=== PATIENT | male | born 1950 | race Caucasian/White ===

== ENCOUNTER 2018-07-06 06:56 | Day surgery (SDC) | payer BC, OTHER ==
[2018-07-06 07:08] VITALS: BMI 24.3
--- NOTE | 2018-07-06 07:52 | PDOC ---
History of Present Illness - General Chief Complaint: Pain Stated Complaint: LEFT FLANK PAIN Time Seen by Provider: 07/06/18 07:06 History Source: Patient Exam Limitations: No Limitations - History of Present Illness Initial Comments: 07/06/18 07:46 67-year-old male with latent hep C, otherwise no significant past medical history (states he used to be on Lipitor but no longer, last PCP visit was about 2 years ago) in good state of normal health presents now with 2 episodes of left flank pain overnight. Patient was in his usual state of health, went to bed feeling fine, was awoken from sleep around 2 AM with a sharp 8 out of 10 localized left flank pain without any other associated symptoms nausea/vomiting/ dysuria/urgency/hematuria. The patient took half a pill of Aleve and the pain went away within 10 minutes. The pain recurred around 6 AM, this time radiating slightly to the left lower abdomen, took the other half of Aleve and again the pain resolved after 10 minutes. Presents for evaluation, currently asymptomatic. No history of kidney stones, never had similar pain in the past. Distant history 40 years ago of rectal surgery for bleeding, has not noted any swelling/ masses. Does daily lifting at his [employer], no unusual strain yesterday. Did slip down a couple of steps last week, sustained a bruise to his R thigh, but no other injuries. No cp/palp. No h/o high blood pressure. Past History - Past Medical History Allergies/Adverse Reactions: Allergies Allergy/AdvReac Type Severity Reaction Status Date / Time No Known Allergies Allergy Verified 07/06/18 06:57 Home Medications: Ambulatory Orders NK [No Known Home Medication] 07/06/18 COPD: No HTN: No Hypercholesterolemia: Yes - Surgical History Abdominal Surgery: Yes (Umbilical hernia) - Immunization History Td Vaccination: No - Suicide/Smoking/Psychosocial Hx Smoking Status: No Smoking History: Never smoked Have you smoked in the past 12 months: No Number of Cigarettes Smoked Daily: 0 Information on smoking cessation initiated: No Hx Alcohol Use: No Drug/Substance Use Hx: Yes (Marijuana) Review of Systems - Review of Systems Constitutional: No: Chills, Fever, Night Sweats, Unintentional Wgt. Loss Respiratory: No: Cough, Shortness of Breath, Wheezing Cardiac (ROS): No: Chest Pain, Edema, Lightheadedness, Syncope ABD/GI: No: Constipated, Diarrhea, Nausea, Vomiting : Yes: Flank Pain. No: Burning, Dysuria, Hematuria Musculoskeletal: Yes: Muscle Pain Integumentary: No: Rash Neurological: No: Headache All Other Systems: Reviewed and Negative *Physical Exam - Vital Signs Last Vital Signs Temp Pulse Resp BP Pulse Ox 98.2 F 67 18 182/111 H 100 07/06/18 07:01 07/06/18 07:01 07/06/18 07:01 07/06/18 07:01 07/06/18 07:01 - Physical Exam Comments: 07/06/18 07:50 Blood pressure notably elevated, vital signs otherwise normal GENERAL: The patient is awake, alert, and fully oriented, in no acute distress seated in chair without any pain. HEAD: Normal with no signs of trauma. EYES: PERRL, EOMI, sclera anicteric, conjunctiva clear with no pallor. ENT: oropharynx clear. Moist mucous membranes. NECK: Normal range of motion, supple without lymphadenopathy, JVD, or masses. LUNGS: Breath sounds equal, clear to auscultation bilaterally. No wheeze/ crackles. HEART: Regular rate and rhythm, normal S1 and S2 without murmur or rub. ABDOMEN: Soft/nontender/nondistended. BS wnl. No CVAT. No guarding or rebound. No palpable masses or lymph nodes. No hepatosplenomegaly. EXTREMITIES: Normal range of motion, no edema. 2+ distal pulses. No cords, erythema, or tenderness. NEUROLOGICAL: Cranial nerves II through XII grossly intact. Normal speech, normal gait. PSYCH: Normal mood, normal affect. SKIN: Warm, Dry, no rashes or lesions noted. Heart Score/ECG Review #1 ECG reviewed & interpreted by me at: 07:58 General ECG Interpretation: Sinus Rhythm, Normal Rate (63), Normal Intervals ( qtc 423, no LVH), No acute ischemic changes ED Treatment Course - LABORATORY CBC & Chemistry Diagram: 07/06/18 07:15 07/06/18 07:24 Medical Decision Making - Medical Decision Making 07/06/18 07:52 67-year-old male presents with 2 brief episodes of isolated left flank pain, resolved. Other than elevated blood pressure, no notable findings on examination. Presentation could be consistent with kidney stone, given the high blood pressure will rule out any kidney injury. No current evidence for zoster, GI process, or primary cardiopulmonary process. Check labs, urinalysis Repeat blood pressure 158/90 without intervention Can consider imaging based on lab findings 07/06/18 08:47 UA with 1+ blood, no infection. CTAP ordered for possible renal colic. labs wnl, no leukocytosis and Cr normal Pain returned while waiting for CT, + L cva discomfort to palpation, seems colicky as pt uncomfortable/writhing. Given Toradol IV. 07/06/18 10:50 obstructing proximal 9mm y-shaped L ureteral stone with edema/stranding. Discussed with Dr. Soto, no UTI/JEREMY but given persistent sxs will admit for pain control and likely intervention. Pt agrees. 07/06/18 12:18 accepted for admission by Dr. Colunga (signout given to LALITO Major) pending confirmation of consult availability. Will d/w and proceed accordingly. Dr. Soto unable to see at [facility]. 07/06/18 13:[address] Brown, will see patient and plan for likely stent tomorrow. LALITO Major updated and accepts for admission to med/surg. Pt clinically unchanged. *DC/Admit/Observation/Transfer Diagnosis at time of Disposition: Left flank pain, Left nephrolithiasis - Discharge Dispostion Condition at time of disposition: Stable Decision to Admit order: Yes - Referrals - Patient Instructions - Post Discharge Activity
[2018-07-06 08:20] LABS: ALBUMIN 4.1 g/dl (3.4-5.0); ALK PHOS 35 U/L (45-117); ANION GAP 7 MMOL/L (8-16); BILIRUBIN,TOTAL 0.7 mg/dl (0.2-1); BLOOD UREA NITROGEN 21 mg/dl (7-18); CALCIUM 8.7 mg/dl (8.5-10); CHLORIDE 104 mmol/L (98-107); CO2 26 mmol/L (21-32); CREATININE 0.8 mg/dl (0.55-1.3); GLUCOSE,RANDOM 96 mg/dl (74-106); POTASSIUM 4.2 mmol/L (3.5-5.1); SGOT/AST 23 U/L (15-37); SGPT/ALT 13 U/L (13-61); SODIUM 137 mmol/L (136-145)
[2018-07-06 08:31] LABS: BASO % 0.2 % (0-2.0); EOS % 0.3 % (0-4.5); HEMATOCRIT 37.5 % (35.4-49); HEMOGLOBIN 12.8 GM/dl (11.7-16.9); LYMPH % 14.1 % (8-40); MCH 31.5 pg (25.7-33.7); MCHC 34.2 g/dl (32.0-35.9); MEAN CELL VOLUME 92.1 fl (80-96); MEAN PLT VOLUME 8.6 fl (7.5-11.1); MONO % 6.4 % (3.8-10.2); PLATELET COUNT 288 K/MM3 (134-434); RBC 4.07 M/mm3 (4.00-5.60); RDW 12.6 % (11.9-15.9); WHITE BLOOD COUNT 8.4 K/mm3 (4.0-10.8)
[2018-07-06] MEDS ORDERED: KETOROLAC TROMETHAMINE 30 MG/1 ML VIAL ONE (08:45)
[2018-07-06] MEDS ORDERED: KETOROLAC TROMETHAMINE 30 MG/1 ML VIAL IVPUSH ONE (08:46)
[2018-07-06 11:26] LABS: EPITHELIAL CELLS FEW /hpf
--- NOTE | 2018-07-06 16:38 | EKG ---
Test Reason : Blood Pressure : / mmHG Vent. Rate : 063 BPM Atrial Rate : 063 BPM P-R Int : 174 ms QRS Dur : 086 ms QT Int : 414 ms P-R-T Axes : 075 -26 052 degrees QTc Int : 423 ms NORMAL SINUS RHYTHM NORMAL ECG NO PREVIOUS ECGS AVAILABLE Confirmed by GRANT MINAYA, JESÚS ([id number]) on 07/06/2018 4:38:16 PM Referred By: RYAN PALOMO Confirmed By:JESÚS BURNS MD
[2018-07-06] MEDS ORDERED: ACETAMINOPHEN 1000 MG/100 ML VIAL (NON FORMULARY) IVPB PRN (17:19)
[2018-07-06] MEDS: KETOROLAC TROMETHAMINE 30 MG/1 ML VIAL IVPUSH PRN ×2 (17:24→18:41)
[2018-07-06] MEDS: SODIUM CHLORIDE 1,000 ML IV SCH (18:00)
--- NOTE | 2018-07-06 18:42 | HP ---
CHIEF COMPLAINT: Left flank pain PCP: Es Solares HISTORY OF PRESENT ILLNESS: 67 year-old male with a PMH significant for Hep C treated with Interferon x 10 years. Patient was in his usual state of health, went to bed last night feeling fine, was awoken from sleep around 2 AM with a sharp, 8/10 localized left flank pain without any other associated symptoms nausea/vomiting/dysuria/urgency/ hematuria. The patient took half a pill of Aleve and the pain went away within 10 minutes. The pain recurred around 6 AM, this time radiating slightly to the left lower abdomen, took the other half of Aleve and again the pain resolved after 10 minutes. Presented to the ED for evaluation. No history of kidney stones, never had similar pain in the past. Distant history 40 years ago of surgery which he thinks was related to ulcers and rectal bleeding. Does daily lifting at his [employer], no unusual strain. Did slip down a couple of steps last week, sustained a bruise to his R thigh, but no other injuries. ER course was notable for: (1) BP: 182/111 (2) CTAP: left kidney edematous and swollen with perirenal stranding; 9mm Y- shaped renal pelvic calculus; left hydronephrosis Recent Travel: No PAST MEDICAL HISTORY: Hepatitis C treated with Interferon PAST SURGICAL HISTORY: Surgery related to ulcers and rectal bleeding age 32 Appendectomy child Social History: works in [employer] in [place], lives with Smoking: quit 20 years ago, smoked 15 years Alcohol: occasinal wine/beer Drugs: no Family History: mother 63 intestinal blockage, father 64 complications from surgery, siblings, children a & w Allergies No Known Allergies Allergy (Verified 07/06/18 06:57) HOME MEDICATIONS: Home Medications Medication Instructions Recorded NK [No Known Home Medication] 07/06/18 REVIEW OF SYSTEMS CONSTITUTIONAL: Absent: fever, chills, diaphoresis, generalized weakness, malaise, loss of appetite, weight change HEENT: Absent: rhinorrhea, nasal congestion, throat pain, throat swelling, difficulty swallowing, mouth swelling, ear pain, eye pain, visual changes CARDIOVASCULAR: Absent: chest pain, syncope, palpitations, irregular heart rate, lightheadedness , peripheral edema RESPIRATORY: Absent: cough, shortness of breath, dyspnea with exertion, orthopnea, wheezing, stridor, hemoptysis GASTROINTESTINAL: Absent: abdominal pain, abdominal distension, nausea, vomiting, diarrhea, constipation, melena, hematochezia GENITOURINARY: +left flank pain, intermittent Absent: dysuria, frequency, urgency, hesitancy, hematuria, flank pain, genital pain MUSCULOSKELETAL: Absent: myalgia, arthralgia, joint swelling, back pain, neck pain SKIN: Absent: rash, itching, pallor HEMATOLOGIC/IMMUNOLOGIC: Absent: easy bleeding, easy bruising, lymphadenopathy, frequent infections ENDOCRINE: Absent: unexplained weight gain, unexplained weight loss, heat intolerance, cold intolerance NEUROLOGIC: Absent: headache, focal weakness or paresthesias, dizziness, unsteady gait, seizure, mental status changes, bladder or bowel incontinence PSYCHIATRIC: Absent: anxiety, depression, suicidal or homicidal ideation, hallucinations. PHYSICAL EXAMINATION Vital Signs - 24 hr 07/06/18 07/06/18 07/06/18 07:01 07:53 11:05 Temperature 98.2 F Pulse Rate 67 Pulse Rate [ 60 57 L Right] Respiratory 18 17 Rate Blood Pressure 182/111 H Blood Pressure 158/91 141/84 [Left Arm] O2 Sat by Pulse 100 100 100 Oximetry (%) 07/06/18 07/06/18 13:40 14:25 Temperature 98 F 99 F Pulse Rate 56 L Pulse Rate [ 58 L Right] Respiratory 17 18 Rate Blood Pressure 147/79 Blood Pressure 148/90 [Left Arm] O2 Sat by Pulse 98 Oximetry (%) GENERAL: Awake, alert, and fully oriented, in no acute distress. HEAD: Normal with no signs of trauma. EYES: Pupils equal, round and reactive to light, extraocular movements intact, sclera anicteric, conjunctiva clear. No lid lag. EARS, NOSE, THROAT: Ears normal, nares patent, oropharynx clear without exudates. Moist mucous membranes. NECK: Normal range of motion, supple without lymphadenopathy, JVD, or masses. LUNGS: Breath sounds equal, clear to auscultation bilaterally. No wheezes, and no crackles. No accessory muscle use. HEART: Regular rate and rhythm, normal S1 and S2 without murmur, rub or gallop. ABDOMEN: Soft, nontender, not distended, normoactive bowel sounds, no guarding, no rebound, no masses. No hepatomegaly or splenomegaly. MUSCULOSKELETAL: Normal range of motion at all joints. No bony deformities or tenderness. +left CVA tenderness UPPER EXTREMITIES: 2+ pulses, warm, well-perfused. No cyanosis. No clubbing. No peripheral edema. LOWER EXTREMITIES: 2+ pulses, warm, well-perfused. No calf tenderness. No peripheral edema. NEUROLOGICAL: Cranial nerves II-XII intact. Normal speech. Normal gait. Laboratory Results - last 24 hr 07/06/18 07/06/18 07/06/18 07:15 07:24 07:32 WBC 8.4 RBC 4.07 Hgb 12.8 Hct 37.5 MCV 92.1 MCH 31.5 MCHC 34.2 RDW 12.6 Plt Count 288 MPV 8.6 Absolute Neuts (auto) 6.7 Neutrophils % 79.0 Lymphocytes % 14.1 Monocytes % 6.4 Eosinophils % 0.3 Basophils % 0.2 Sodium 137 Potassium 4.2 Chloride 104 Carbon Dioxide 26 Anion Gap 7 L BUN 21 H Creatinine 0.8 Creat Clearance w eGFR 97.02 Random Glucose 96 Calcium 8.7 Total Bilirubin 0.7 AST 23 ALT 13 Alkaline Phosphatase 35 L Total Protein 7.0 Albumin 4.1 Urine Color Yellow Urine Appearance Clear Urine pH 5.0 Urine Protein Negative Urine Glucose (UA) Negative Urine Ketones Negative Urine Blood 1+ H Urine Nitrite Negative Urine Bilirubin Negative Urine Urobilinogen 0.2 Ur Leukocyte Esterase Negative Urine RBC 0-3 Urine WBC 0-3 Ur Transition Epith Cell Few Urine Bacteria None seen ASSESSMENT/PLAN 67 year-old male with a PMH significant for Hep C. 23 hour surgery admit for obstructing left renal pelvic calculi. Obstructing left renal pelvic calculi --CTAP: left kidney edematous and swollen with perirenal stranding; 9mm Y- shaped renal pelvic calculus; left hydronephrosis --renal function stable; no fever no leukocytosis --scheduled for OR tomorrow with urologist Dr. Ureña --UA negative, no hematuria; UC ordered Elevated blood pressure --BP: 182/111 in ED, has since stabilized --not on anti-hypertensives Hepatitis C --treated, stable FEN Fluids: NS@125mL/hr Electrolytes: replete as indicated Nutrition: NPO after midnight DVT prophylaxis: oob, ambulation Dispo: continues to require inpatient care. Full code. Visit type - Emergency Visit Emergency Visit: Yes Care time: The patient presented to the Emergency Department on the above date and was hospitalized for further evaluation of their emergent condition. - New Patient This patient is new to me today: Yes Date on this admission: 07/06/18 - Critical Care Critical Care patient: No
[2018-07-06] MEDS: DOCUSATE SODIUM 100 MG CAPSULE (FP) PO SCH (21:34)
[2018-07-07] MEDS: KETOROLAC TROMETHAMINE 30 MG/1 ML VIAL IVPUSH PRN (11:58)
[2018-07-07] MEDS: HYDROmorphone HCL CARPU-JECT 2 MG/1 ML DISP.SYRIN IVPB PRN (13:20)
--- NOTE | 2018-07-07 13:34 | PN ---
Physical Exam: SUBJECTIVE: Patient seen and examined OBJECTIVE: Vital Signs Period Temp Pulse Resp BP Sys/Leblanc Pulse Ox Last 24 Hr 97.7 F-99 F 56-61 16-18 123-151/59-90 98-99 GENERAL: Awake, alert, and fully oriented, in no acute distress. LUNGS: Breath sounds equal, clear to auscultation bilaterally. No wheezes, and no crackles. No accessory muscle use. HEART: Regular rate and rhythm, normal S1 and S2 ABDOMEN: Soft, nontender, not distended MUSCULOSKELETAL: +left CVA tenderness UPPER EXTREMITIES: 2+ pulses, warm, well-perfused. No cyanosis. No clubbing. No peripheral edema. LOWER EXTREMITIES: 2+ pulses, warm, well-perfused. No calf tenderness. No peripheral edema. NEUROLOGICAL: Cranial nerves II-XII intact. Normal speech. Normal gait. Laboratory Results - last 24 hr 07/07/18 06:00 Urine Color Joslyn Urine Appearance Clear Urine pH 5.5 Urine Protein Negative Urine Glucose (UA) Negative Urine Ketones Negative Urine Blood Trace-lysed Urine Nitrite Negative Urine Bilirubin Negative Urine Urobilinogen 0.2 Ur Leukocyte Esterase Negative Urine RBC 0-2 Active Medications Generic Name Dose Route Start Last Admin Trade Name Freq PRN Reason Stop Dose Admin Docusate Sodium 300 mg 07/06/18 22:00 07/06/18 21:34 Colace - PO Not Given HS CORBIN Hydromorphone HCl 2 mg 07/06/18 20:25 07/07/18 13:20 Dilaudid Injection - IVPB 2 mg Q6H PRN Administration PAIN LEVEL 6-10 Sodium Chloride 1,000 mls @ 125 mls/hr 07/06/18 17:30 07/06/18 18:00 Normal Saline - IV 125 mls/hr ASDIR CORBIN Administration Ketorolac Tromethamine 30 mg 07/06/18 20:24 07/07/18 11:58 Toradol Injection - IVPUSH 07/11/18 17:17 30 mg Q6H PRN Administration PAIN LEVEL 1-5 ASSESSMENT/PLAN: 67 year-old male with a PMH significant for Hep C. 23 hour surgery admit for obstructing left renal pelvic calculi. Obstructing left renal pelvic calculi --CTAP: left kidney edematous and swollen with perirenal stranding; 9mm Y- shaped renal pelvic calculus; left hydronephrosis --renal function stable; no fever no leukocytosis --scheduled for OR today with urologist Dr. Ureña --no fever, no leukocytosis; UA negative, no hematuria; UC pending --ketorolac PRN; dilaudid PRN Elevated blood pressure, resolved --not on anti-hypertensives Hepatitis C --treated, stable FEN Fluids: NS@125mL/hr Electrolytes: replete as indicated Nutrition: NPO DVT prophylaxis: oob, ambulation Dispo: continues to require inpatient care. Full code. Visit type - Emergency Visit Emergency Visit: Yes Care time: The patient presented to the Emergency Department on the above date and was hospitalized for further evaluation of their emergent condition. - New Patient This patient is new to me today: No - Critical Care Critical Care patient: No
[2018-07-07] MEDS ORDERED: PROMETHAZINE HCL 25 MG/1 ML VIAL IVPUSH PRN (15:17)
[2018-07-07] MEDS ORDERED: ONDANSETRON 4 MG/2 ML VIAL IVPUSH PRN (15:17)
[2018-07-07] MEDS ORDERED: PROPOFOL 20 ML ONE (15:26)
[2018-07-07] MEDS ORDERED: DEXAMETHASONE SOD PHOSPHATE 4 MG/1 ML VIAL ONE (15:26)
[2018-07-07] MEDS ORDERED: KETOROLAC TROMETHAMINE 30 MG/1 ML VIAL ONE (15:26)
[2018-07-07] MEDS ORDERED: ONDANSETRON 4 MG/2 ML VIAL ONE (15:26)
[2018-07-07] MEDS ORDERED: MIDAZOLAM HCL 2 MG/2 ML SINGLE DOSE VIAL ONE (15:27)
[2018-07-07] MEDS ORDERED: LACTATED RINGERS SOLUTION 1,000 ML IV SCH (15:30)
[2018-07-07] MEDS ORDERED: LIDOCAINE HCL 2% JELLY 10 ML CARTRIDGE ONE (15:50)
[2018-07-07] MEDS ORDERED: IOHEXOL 180 MG/1 ML ML IJ ONE (16:20)
[2018-07-07] MEDS ORDERED: ceFAZolin SODIUM 1 GM VIAL ONE ×2 (16:23)
[2018-07-07] MEDS ORDERED: LIDOCAINE HCL 2% JELLY 10 ML CARTRIDGE TP ONE ×2 (16:30→16:32)
--- NOTE | 2018-07-07 17:02 | OP ---
DATE OF OPERATION: 07/07/2018 PREOPERATIVE DIAGNOSIS: Left ureteropelvic junction stone. POSTOPERATIVE DIAGNOSIS: Left ureteropelvic junction stone. PROCEDURE: Cystoscopy. Left retrograde pyelogram. Placement of left ureteral stent. ATTENDING SURGEON: Eliud Brown MD ANESTHESIA: General by LMA. Patient was brought into the operating room. Timeout performed. He was then carefully placed in lithotomy and prepped and draped in the usual sterile fashion. The 22-Bur[place]ian cystoscope was passed under vision. Prostatic urethra was approximately 3 cm with minimal prostatic enlargement. The bladder itself appeared normal with no masses. Both orifices were visualized. The left orifice was then intubated with Sensor wire over which an open-ended catheter was placed. The open-ended catheter was advanced and a retrograde performed showing a stone at the level of the UPJ which was fairly radiolucent. The wire was reinserted through the open-ended catheter and advanced under fluoroscopy up into the left renal pelvis. The open-ended was then removed and a 26 cm 6-Burundian double pigtail catheter advanced over the wire and curled in the left renal pelvis. Distally it curled in the bladder. There were no complications. The bladder was drained. The patient tolerated the procedure well and left the OR in stable satisfactory condition. MD TATYANA SEGAL/[id number]
[2018-07-07] MEDS ORDERED: SODIUM CHLORIDE 1,000 ML IV SCH ×2 (17:31→18:15)
[2018-07-07] MEDS: SODIUM CHLORIDE 1,000 ML IV SCH (17:57)
[2018-07-07] MEDS ORDERED: PT OWN MED DRAWER 7, Y5N ONE (19:39)
[2018-07-07] MEDS ORDERED: CEFUROXIME AXETIL 500 MG TABLET PO SCH (20:00)
[2018-07-07] MEDS: DOCUSATE SODIUM 100 MG CAPSULE (FP) PO SCH (21:11)
[2018-07-07] MEDS ORDERED: CEFUROXIME AXETIL 250 MG TABLET PO SCH (22:00)
[2018-07-08] MEDS: KETOROLAC TROMETHAMINE 30 MG/1 ML VIAL IVPUSH PRN (02:56)
[2018-07-08] MEDS: HYDROmorphone HCL CARPU-JECT 2 MG/1 ML DISP.SYRIN IVPB PRN (07:51)
[2018-07-08] MEDS ORDERED: TAMSULOSIN HCL 0.4 MG CAP PO SCH (08:30)
[2018-07-08 08:58] VITALS: BP 145/77; PULSE 76; TEMP 98.6
[2018-07-08] MEDS ORDERED: CEFUROXIME AXETIL 250 MG TABLET PO SCH (10:00)
== END 2018-07-08 11:46 | disposition home or self-care (01) ==
LOC: FER 06:56 → SUATTDRO 11:32 → FASUSAT 11:32 → FM/S 11:42 → FASUSAT 07-08 11:46
PROVIDERS: ATTEND Nurse Practitioner Acute Care
PROC: 0T7D8DZ Dilation of Urethra with Intraluminal Device, Via Natural or Artificial Opening Endoscopic (ICD-10-PCS; principal; 2018-07-06)
PROC: BT1FYZZ Fluoroscopy of Left Kidney, Ureter and Bladder using Other Contrast (ICD-10-PCS; 2018-07-06)
PROC: 0WHR8YZ Insertion of Other Device into Genitourinary Tract, Via Natural or Artificial Opening Endoscopic (ICD-10-PCS; 2018-07-06)
DX: N20.1 Calculus of ureter (principal); B18.2 Chronic viral hepatitis C
CPT/HCPCS: 36415; 74018-TC-FY; 74176-TC; 76000-TC-FY; 80053; 81003; 81015; 85025; 87086; 93005; 94760; 99285-25; J7030

== ENCOUNTER 2021-01-09 14:12 | Emergency (ER) | payer BC, OTHER ==
[2021-01-09 14:45] VITALS: BP 161/91; PULSE 66; TEMP 97.5; BMI 27.2
[2021-01-09 16:54] LABS: BASO % 0.3 % (0-2.0); EOS % 0.2 % (0-4.5); HEMOGLOBIN 12.4 GM/dL (11.7-16.9); LYMPH % 27.8 % (8-40); MCH 30.1 pg (25.7-33.7); MCHC 33.5 g/dl (32.0-35.9); MEAN CELL VOLUME 89.9 fl (80-96); MEAN PLT VOLUME 8.4 fl (7.5-11.1); MONO % 9.3 % (3.8-10.2); NEUT % 62.4 % (42.8-82.8); PLATELET COUNT 253 10^3/uL (134-434); RBC 4.11 M/mm3 (4.00-5.60); RDW 15.1 % (11.9-15.9); WHITE BLOOD COUNT 8.1 K/mm3 (4.0-10.0)
[2021-01-09 17:12] LABS: CHLORIDE 107 mmol/L (98-107); SODIUM 140 mmol/L (136-145)
[2021-01-09 17:15] LABS: ALBUMIN 4.1 g/dl (3.4-5.0); ANION GAP 8 MMOL/L (8-16); BLOOD UREA NITROGEN 18.9 mg/dL (7-18); CALCIUM 9.1 mg/dL (8.5-10.1); CO2 26 mmol/L (21-32); GLUCOSE,RANDOM 87 mg/dL (74-106)
[2021-01-09 17:19] LABS: CREATININE 0.9 mg/dL (0.55-1.3); SGOT/AST 30 U/L (15-37); SGPT/ALT 38 U/L (13-61)
[2021-01-09 17:22] LABS: ALK PHOS 57 U/L (45-117)
[2021-01-09 17:24] LABS: N-TERMINAL BNP 198.8 pg/ml (5-125)
[2021-01-09 17:28] LABS: BILIRUBIN,TOTAL 0.6 mg/dL (0.2-1)
[2021-01-09 18:16] LABS: EPI CELLS 2 /uL (0-25.1); HYALINE CASTS 0 /uL (0-3.1); PH,URINE 5.5 (5.0-8.0); URINE APPEARANCE CLEAR; URINE BACTERIA 7 /uL (0-1359); URINE BILIRUBIN NEGATIVE (NEGATIVE); URINE COLOR YELLOW; URINE GLUCOSE (UA) NEGATIVE (NEGATIVE); URINE KETONE TRACE (NEGATIVE); URINE LEUK ESTERASE NEGATIVE (NEGATIVE); URINE NITRITE NEGATIVE (NEGATIVE); URINE PROTEIN NEGATIVE (NEGATIVE); URINE RBC 15 /uL (0-23.9); URINE UROBILINOGEN 0.2 mg/dL (0.2-1.0); URINE WBC 2 /uL (0-25.8)
== END 2021-01-09 19:29 | disposition left against medical advice (07) ==
LOC: JER 14:12
DX: R06.09 Other forms of dyspnea (principal)
CPT/HCPCS: 36415; 71046-TC-FY; 80053; 81003; 82550; 83880; 84484; 85025; 87086; 93005; 93010; 99285-25; C9803; U0003; U0005